=== PATIENT | male | born 1950 | race Caucasian/White ===

== ENCOUNTER 2018-09-14 11:11 | Inpatient (IN) | payer MEDICARE | END 2018-09-18 18:30 | disposition home or self-care (01) | LOC: EDH 11:11 → EDHIP 14:49 → 3CH 18:32 | DX: R94.5 Abnormal results of liver function studies (principal); K83.1 Obstruction of bile duct; K76.7 Hepatorenal syndrome; N17.9 Acute kidney failure, unspecified; E87.1 Hypo-osmolality and hyponatremia; R16.0 Hepatomegaly, not elsewhere classified; R10.9 Unspecified abdominal pain; K42.9 Umbilical hernia without obstruction or gangrene; D64.9 Anemia, unspecified; E11.65 Type 2 diabetes mellitus with hyperglycemia ==

== ENCOUNTER → 2018-09-25 | Outpatient (CLI) | payer MEDICARE ==
[~2018-09-25] MED LIST: AMIT25TA9 PO; ASCO10007 PO; ASPI-555 PO; CALC-1104 PO; CARV12.511 PO; CHOL100040 PO; CYAN-35 PO; EMPA10TA PO; EMPA1TAB5 PO; ERGO500014 PO; FERR160T11 PO; FOLI0.8T22 PO; FURO20TA4 PO; GABA-533 PO; INSU100I15 SQ; INSU300I SQ; IOHEXOL-350 75 ML VIAL IV ONE; ISOS60TA4 PO; LEVO500T2 PO; LISI10TA7 PO; MAGN250T10 PO; METH-370 PO; METO50TA18 PO; METR500T PO; MULT-1258 PO; OMEG-148 PO; PRAV40TA3 PO; ROPI1TAB11 PO; TRAM50TA4 PO; VITA400T9 PO; WARF4TAB72 PO; WARF6TAB49 PO
== END | disposition home or self-care (01) ==
LOC: RAH 09:41
PROVIDERS: ATTEND Internal Medicine
DX: N28.1 Cyst of kidney, acquired (principal); N20.0 Calculus of kidney; K43.9 Ventral hernia without obstruction or gangrene; I70.90 Unspecified atherosclerosis; K76.89 Other specified diseases of liver; M47.815 Spondylosis without myelopathy or radiculopathy, thoracolumbar region; J98.11 Atelectasis
CPT/HCPCS: 74170; Q9967

== ENCOUNTER 2018-09-27 14:38 | Inpatient (IN) | payer MEDICARE ==
[~2018-09-27] VITALS: Ht 185.4 cm; Wt 90.8 kg
[~2018-09-27 14:38] MED LIST changes: -AMIT25TA9 PO; -ASCO10007 PO; -CALC-1104 PO; -CHOL100040 PO; -CYAN-35 PO; -EMPA10TA PO; -FERR160T11 PO; -IOHEXOL-350 75 ML VIAL IV ONE; -ISOS60TA4 PO; -MAGN250T10 PO; -MULT-1258 PO; -OMEG-148 PO; -VITA400T9 PO; -WARF6TAB49 PO
[2018-09-27 14:54] LABS: EOSINOPHILS % (AUTO) 2.2 % (0.0-8.0); HEMATOCRIT 27.3 % (42-54); LYMPHOCYTES % (AUTO) 10.4 % (21.0-51.0); MEAN CORPUSCULAR HGB CONC 33.3 g/dL (32.0-36.0); MEAN CORPUSCULAR VOLUME 87.1 fL (79-99); MONOCYTES % (AUTO) 12.3 % (3.0-13.0); NEUTROPHILS % (AUTO) 74.1 % (40.0-77.0); PLATELET COUNT (AUTO) 216 K/uL (130-400); RED BLOOD CELL COUNT(AUTO) 3.14 MIL/uL (4.50-6.20); RED CELL DISTRIBUTION WIDTH 14.2 % (11.0-15.5); WHITE BLOOD COUNT (AUTO) 7.8 K/uL (4.8-10.8)
[2018-09-27 15:11] LABS: INR 2.2 (0.85-1.15); PARTIAL THROMBOPLASTIN TIME 60.6 SEC (26.3-35.5); PROTHROMBIN TIME 22.7 SEC (9.6-11.6)
[2018-09-27 15:13] LABS: ALBUMIN 2.4 g/dL (3.5-5.0); BILIRUBIN,TOTAL 1.2 mg/dL (0.2-1.0); CREATININE 4.6 mg/dL (0.5-1.5); POTASSIUM 3.9 mmol/L (3.5-5.1); TOTAL PROTEIN, SERUM 6.2 g/dL (6.0-8.3)
[2018-09-27] MEDS ORDERED: ISOSORBIDE MONO 30MG TAB SR PO SCH (15:15)
[2018-09-27] MEDS: CLOPIDOGREL BISULFATE 300 MG TAB PO SCH (15:15)
[2018-09-27] MEDS ORDERED: SODIUM CHLORIDE 0.9% 1000ML 1,000 ML IV ONE (15:51)
[2018-09-27] MEDS ORDERED: CLOPIDOGREL BISULFATE 300 MG TAB ONE (16:41)
[2018-09-27] MEDS ORDERED: SODIUM CHLORIDE 0.9% 10 ML VIAL IVP SCH (16:45)
[2018-09-27 18:25] VITALS: BP 123/63
[2018-09-27 19:00] VITALS: BP 73/38
[2018-09-27 19:16] VITALS: BP 88/44
[2018-09-27 19:31] VITALS: BP 90/54
[2018-09-27 19:45] VITALS: BP 87/58
[2018-09-27 20:27] LABS: CREATINE KINASE, TOTAL 70 U/L (21-232); MYOGLOBIN 138 ng/mL (10-92); TROPONIN I < 0.04 ng/mL (0.00-0.06)
[2018-09-27] MEDS ORDERED: INSU300I SQ (20:37)
[2018-09-27] MEDS ORDERED: AMIT25TA9 PO (20:37)
[2018-09-27] MEDS ORDERED: CALC-1104 PO (20:37)
[2018-09-27] MEDS ORDERED: MULT-1258 PO (20:37)
[2018-09-27] MEDS ORDERED: ISOS60TA4 PO (20:37)
[2018-09-27] MEDS ORDERED: OMEG-148 PO (20:37)
[2018-09-27] MEDS ORDERED: CHOL100040 PO (20:37)
[2018-09-27] MEDS ORDERED: FERR160T11 PO (20:37)
[2018-09-27] MEDS ORDERED: EMPA10TA PO (20:37)
[2018-09-27] MEDS ORDERED: CYAN-35 PO (20:37)
[2018-09-27] MEDS ORDERED: VITA400T9 PO (20:37)
[2018-09-27] MEDS ORDERED: WARF4TAB72 PO (20:37)
[2018-09-27] MEDS ORDERED: WARF6TAB49 PO (20:37)
[2018-09-27] MEDS ORDERED: ASCO10007 PO (20:37)
[2018-09-27] MEDS ORDERED: MAGN250T10 PO (20:37)
[2018-09-27] MEDS ORDERED: CARVEDILOL 3.125 MG TABLET PO SCH (21:00)
[2018-09-27] MEDS: INSULIN HUMULIN R 100 UNIT/ML 3ML SQ SCH (21:15)
[2018-09-27] MEDS: FAMOTIDINE 20MG TAB 20 MG TAB PO SCH (21:20)
[2018-09-27] MEDS ORDERED: METHIMAZOLE 10 MG TAB PO SCH (22:45)
[2018-09-27 23:00] VITALS: BP 99/70
[2018-09-27 23:22] LABS: CREATINE KINASE, TOTAL 67 U/L (21-232); MYOGLOBIN 129 ng/mL (10-92); TROPONIN I < 0.04 ng/mL (0.00-0.06)
[2018-09-28 03:22] VITALS: BP 122/76
[2018-09-28] MEDS ORDERED: SODIUM CHLORIDE 0.9% 1000ML 1,000 ML IV ONE (03:36)
[2018-09-28] MEDS: INSULIN HUMULIN R 100 UNIT/ML 3ML SQ SCH ×4 (06:33→20:52)
[2018-09-28 06:57] LABS: HEMATOCRIT 27.3 % (42-54); MEAN CORPUSCULAR HGB CONC 33.3 g/dL (32.0-36.0); MEAN CORPUSCULAR VOLUME 87.1 fL (79-99); PLATELET COUNT (AUTO) 209 K/uL (130-400); RED BLOOD CELL COUNT(AUTO) 3.13 MIL/uL (4.50-6.20); RED CELL DISTRIBUTION WIDTH 14.2 % (11.0-15.5); WHITE BLOOD COUNT (AUTO) 5.9 K/uL (4.8-10.8)
[2018-09-28 07:18] LABS: CARBON DIOXIDE 13 mmol/L (21-32); CHLORIDE 105 mmol/L (101-111); CREATINE KINASE, TOTAL 58 U/L (21-232); CREATININE 4.7 mg/dL (0.5-1.5); GLOMERULAR FILTR. RATE CALC 13 mL/min (>60); GLUCOSE,RANDOM 137 mg/dL (70-105); MYOGLOBIN 111 ng/mL (10-92); POTASSIUM 4.2 mmol/L (3.5-5.1); SODIUM SERUM 134 mmol/L (136-145); TROPONIN I < 0.04 ng/mL (0.00-0.06)
[2018-09-28 07:20] LABS: UREA NITROGEN, BLOOD 84 mg/dL (7-18)
--- NOTE | 2018-09-28 07:20 | NUR ---
DR MATOS AT BEDSIDE . PLAN PANCREATIC BX PREVIOUSLY SCHEDULED. OBTAIN CARDIAC CLEARANCE.
[2018-09-28 07:23] VITALS: BP 116/83
[2018-09-28 07:23] LABS: INR 2.16 (0.85-1.15); PROTHROMBIN TIME 22.3 SEC (9.6-11.6)
--- NOTE | 2018-09-28 07:30 | NUR ---
Patient is resting in bed. Denies pain and SOB. Vitals as recorded. Bed Locked and Low, Call light in reach, Patient is able to demonstrate correct use of call light. Patient is unsure of year and current president, looks to to answer questions. Pending head CT today. Monitors on and alarms audible. Will continue to monitor.
--- NOTE | 2018-09-28 08:20 | NUR ---
Dr Jovani Evans in to see patient. New orders on chart. States patient has cardiac clearance for Biopsy when GI is ready. Long discussion of patient's condition and plan had between Dr Jovani Evans, Patient and spouse at bedside. Dr Jovani Evans answered all questions.
[2018-09-28] MEDS ORDERED: AMIODARONE HCL 150 MG in DEXTROSE 5%-WATER 100 ML IV SCH (08:30)
[2018-09-28] MEDS ORDERED: AMIODARONE HCL 900 MG in DEXTROSE 5%-WATER 500 ML IV SCH (08:30)
[2018-09-28] MEDS: ENOXAPARIN SODIUM 30 MG/0.3 ML SQ SCH (09:00)
[2018-09-28] MEDS ORDERED: METOPROLOL TARTRATE 50 MG TAB PO SCH (09:00)
[2018-09-28] MEDS ORDERED: WARFARIN SODIUM 4 MG PO SCH (09:00)
[2018-09-28] MEDS ORDERED: CLOPIDOGREL BISULFATE 75 MG TAB PO SCH (09:00)
[2018-09-28] MEDS ORDERED: FUROSEMIDE 20 MG TABLET PO SCH (09:00)
[2018-09-28] MEDS ORDERED: LISINOPRIL 10 MG TABLET PO SCH (09:00)
[2018-09-28] MEDS ORDERED: ISOSORBIDE MONO 30MG TAB SR PO SCH (09:00)
[2018-09-28] MEDS ORDERED: NON-FORMULARY MEDICATION 1 EACH (Aspirin (Aspir 81) 81 MG) PO SCH (09:00)
[2018-09-28] MEDS ORDERED: MAGNESIUM OXIDE 250 MG PO SCH (09:00)
[2018-09-28] MEDS ORDERED: CYANOCOBALAMIN (VITAMIN B-12) 1,000 MCG TABLET PO SCH (09:00)
[2018-09-28] MEDS: ***HM***Cholecalciferol (Vitamin D3) 1,000 UNIT PO SCH (09:00)
[2018-09-28] MEDS ORDERED: NON-FORMULARY MEDICATION 1 EACH (Warfarin Sodium 6 MG) PO SCH (09:00)
--- NOTE | 2018-09-28 09:15 | NUR ---
Dr English in to see patient, no new orders.
[2018-09-28] MEDS: SODIUM CHLORIDE 0.9% 1000ML 1,000 ML IV SCH ×2 (09:29→20:59)
[2018-09-28] MEDS: GABAPENTIN 100 MG CAPSULE PO SCH ×3 (09:30→20:50)
[2018-09-28] MEDS: ASCORBIC ACID 500 MG TAB PO SCH (09:30)
[2018-09-28] MEDS: METHIMAZOLE 10 MG TAB PO SCH (09:30)
[2018-09-28] MEDS: ASPIRIN 81MG TAB.CHEW PO SCH (09:31)
[2018-09-28] MEDS: ROPINIROLE HCL 1 MG TABLET PO SCH (09:31)
[2018-09-28] MEDS: CARVEDILOL 12.5 MG TABLET PO SCH ×2 (09:31→20:51)
[2018-09-28] MEDS: CALCIUM 600 + VITAMIN D 400 TABLET PO SCH (09:31)
[2018-09-28] MEDS: FERROUS SULFATE 300 MG/5 ML LIQ UDCUP PO SCH (09:31)
[2018-09-28] MEDS: MULTIVITAMIN WITH MINERALS TABLET PO SCH (09:31)
[2018-09-28] MEDS: FAMOTIDINE 20MG TAB 20 MG TAB PO SCH ×2 (09:31→20:52)
[2018-09-28] MEDS: ISOSORBIDE MONO 60 MG TAB.SR PO SCH (09:32)
--- NOTE | 2018-09-28 10:00 | NUR ---
As Per Dr Estrada, no Oncology consult at this time due to no diagnosis. Patient taken to CT scan with transport. remains in room.
--- NOTE | 2018-09-28 10:10 | NUR ---
Patient returned to room, tolerated well. Monitors on and alarms audible.
[2018-09-28 11:06] VITALS: BP 121/59
--- NOTE | 2018-09-28 12:00 | NUR ---
Dr Noble returned call. Update given on patient condition and Cardiac clearance given by Dr Jovani Evans. Plan discussed: Ok to give 30mg SQ Lovenox now, Hold tomorrow's dose, INR at 3am, If Greater than 1.5 transfuse 2units FFP, then recheck INR, Keep 4 units FFP on hold, NPO after midnight. As per Dr Noble She will input these orders herself.
--- NOTE | 2018-09-28 12:06 | NUR ---
DYSPHAGIA EVAL COMPLETE. -S/S OF ASPIRATION. RECOMMEND REGULAR, THIN LIQUID DIET; PILLS WHOLE WITH LIQUIDS. PATIENT INFORMATION: Pt IS A 68 Y.O. MALE REFERRED FOR A BEDSIDE DYSPHAGIA EVALUATION SECONDARY TO POOR APPETITE. Pt AAOX3 WITH AT BEDSIDE. Pt AND REPORT Pt HAS BEEN WITH LOW P.O. FOR 2 WEEKS. Pt CURRENTLY ADMITTED SECONDARY TO GENERALIZED BODY WEAKNESS. Pt HAS A PAST MEDICAL HISTORY SIGNIFICANT FOR LIVER MASS WITH BILIARY DRAIN AND LIVER DISEASE, NON-INSULIN DEPENDENT DM, HYPERTENSION, HYPERLIPIDEMIA, LIVER BIOPSY, DYSLIPIDEMIA. FINDINGS THIS ADMISSION: LARGE PANCREATIC MASS. EVALUATION: SWALLOW FUNCTION AND EFFICIENCY WITHIN FUNCTIONAL LIMITS. ORAL MOTOR STRENGTH, COORDINATION, AND ROM WITHIN FUNCTIONAL LIMITS. LARYNGEAL ELEVATION/EXCURSION STRONG WITH TIMELY PHARYNGEAL RESPONSE. NO OVERT SIGNS OR SYMPTOMS OF ASPIRATION PRESENT AT BEDSIDE. VOCAL QUALITY CLEAR WITH NO THROAT CLEAR OR COUGH RESPONSE PRESENT. RECOMMENDATIONS: 1. REGULAR TEXTURE, THIN LIQUID DIET; PILLS WHOLE WITH LIQUIDS. 2. COMPENSATORY STRATEGIES (PROPHYLAXIS): *SEATED AT 90 DEGREE ANGLE *NO STRAWS 3. DIETARY CONSULT SECONDARY TO POOR P.O. G-CODES SWALLOWING: [id number] [id number] Addendum: 09/28/18 at 1216 by BRIAN HOLLAND Amended: Links added.
--- NOTE | 2018-09-28 13:56 | NUR ---
RD Trigger Notification Patient with current Heart Healthy diet with poor PO at 25%. Patient with some nausea. RD offered nutritional supplement abbeymacrina, Patient family agrees. Patient LBM 09/27/18. Patient monitored labs: na 134, CO2 13, BUN 84, Cr 4.7, GFR 13, Glu 130, Alb 2.4. Patient with altered renal labs; rec to modify diet to renal non-dialysis. RD to continue to monitor nutritional labs and PO intake. Please notify RD as nutrition concern arise. Thank you. Addendum: 09/28/18 at [address] Amended: Links added.
[2018-09-28] MEDS: CLOPIDOGREL BISULFATE 300 MG TAB PO SCH (14:43)
[2018-09-28 16:00] VITALS: BP 103/66
[2018-09-28 18:11] LABS: APPEARANCE,URINE Clear (CLEAR); BILIRUBIN,URINE Negative (NEGATIVE); COLOR,URINE Yellow (YELLOW); GLUCOSE, URINE (UA) 250 mg/dL (NEGATIVE); KETONES,URINE Negative (NEGATIVE); LEUKOCYTE ESTERASE ,URINE Negative (NEGATIVE); NITRATE,URINE Negative (NEGATIVE); OCCULT BLOOD,URINE Negative (NEGATIVE); PROTEIN,URINE POS 1+ (NEGATIVE); UROBILINOGEN,URINE 0.2 mg/dL (0.2-1.0)
[2018-09-28 18:12] LABS: SODIUM,URINE RANDOM 52 mmol/l (40-220)
[2018-09-28 18:38] LABS: BACTERIA,URINE Few /HPF (None Seen); RBC,URINE 0-1 /HPF (0-1); SQUAMOUS EPITHELIAL CELL,UR Rare /HPF (0-2)
[2018-09-28 19:00] VITALS: BP 101/57
[2018-09-28] MEDS: AMITRIPTYLINE HCL 25 MG TABLET PO SCH (20:51)
[2018-09-28] MEDS: ***HM***Pravastatin Sodium 40 MG PO SCH (20:52)
[2018-09-28] MEDS: TRAMADOL HCL 50 MG TABLET PO PRN ×2 (21:39→23:57)
[2018-09-28] MEDS: PHYTONADIONE 10 MG/1 ML AMP SQ SCH (23:45)
[2018-09-29] VITALS (14 sets, daily range): BP systolic 93–150; BP diastolic 59–76
[2018-09-29] MEDS ORDERED: PHYTONADIONE 10 MG/1 ML AMP ONE
[2018-09-29 03:50] LABS: BASOPHILS % (AUTO) 1.2 % (0.0-5.0); EOSINOPHILS % (AUTO) 4.9 % (0.0-8.0); LYMPHOCYTES % (AUTO) 14.6 % (21.0-51.0); MEAN CORPUSCULAR HEMOGLOBIN 28.7 pg (27.0-33.0); MONOCYTES % (AUTO) 10.1 % (3.0-13.0); NEUTROPHILS % (AUTO) 69.2 % (40.0-77.0); NUCLEATED RED BLOOD CELLS 0.1 % (0.0-0.19); PLATELET COUNT (AUTO) 233 K/uL (130-400); RED BLOOD CELL COUNT(AUTO) 2.88 MIL/uL (4.50-6.20); RED CELL DISTRIBUTION WIDTH 14.3 % (11.0-15.5); WHITE BLOOD COUNT (AUTO) 5.8 K/uL (4.8-10.8)
[2018-09-29 03:57] LABS: INR 2.14 (0.85-1.15); PROTHROMBIN TIME 22.1 SEC (9.6-11.6)
[2018-09-29 04:01] LABS: CREATININE 4.4 mg/dL (0.5-1.5); POTASSIUM 4.2 mmol/L (3.5-5.1)
[2018-09-29] MEDS: INSULIN HUMULIN R 100 UNIT/ML 3ML SQ SCH ×4 (06:03→21:00)
[2018-09-29] MEDS: METHIMAZOLE 10 MG TAB PO SCH (09:00)
[2018-09-29] MEDS: GABAPENTIN 100 MG CAPSULE PO SCH ×3 (09:00→20:24)
[2018-09-29] MEDS: CARVEDILOL 12.5 MG TABLET PO SCH ×2 (09:00→20:25)
[2018-09-29] MEDS: CALCIUM 600 + VITAMIN D 400 TABLET PO SCH (09:00)
[2018-09-29] MEDS: ENOXAPARIN SODIUM 30 MG/0.3 ML SQ SCH (09:00)
[2018-09-29] MEDS: FOLIC ACID/VITAMIN B COMP W-C 1 MG CAPSULE PO SCH (09:00)
[2018-09-29] MEDS: ***HM***Cholecalciferol (Vitamin D3) 1,000 UNIT PO SCH (09:00)
[2018-09-29] MEDS: FAMOTIDINE 20MG TAB 20 MG TAB PO SCH ×2 (09:00→20:25)
[2018-09-29] MEDS: ASCORBIC ACID 500 MG TAB PO SCH (09:00)
[2018-09-29] MEDS: ASPIRIN 81MG TAB.CHEW PO SCH (09:00)
[2018-09-29] MEDS: ROPINIROLE HCL 1 MG TABLET PO SCH (09:00)
[2018-09-29] MEDS: MULTIVITAMIN WITH MINERALS TABLET PO SCH (09:00)
[2018-09-29] MEDS: FERROUS SULFATE 300 MG/5 ML LIQ UDCUP PO SCH (09:00)
[2018-09-29] MEDS: ISOSORBIDE MONO 60 MG TAB.SR PO SCH (09:00)
[2018-09-29] MEDS: THIAMINE HCL 100 MG/ML 2ML VIAL IVP SCH (10:05)
--- NOTE | 2018-09-29 10:07 | NUR ---
DC Plan Went into room to discuss dcp. Patient lying in bed with eyes closed. Normal RR. No distress noted. expressed patient has had major decline in last few days. States sleeps a lot and has no energy. verbalized no prior knowledge of CA diagnosed. Denies any HH or provider services. States patient ambulates w/ cane or walker. States lives upstairs and has stairs to climb. Discussed dc options. states too soon. CM to revisit once patient has a definitive diagnosis. CD Addendum: 09/29/18 at 1010 by ALFREDO BUSTAMANTE CM Amended: Links added.
[2018-09-29 10:44] LABS: INR 1.35 (0.85-1.15); PROTHROMBIN TIME 14.1 SEC (9.6-11.6)
[2018-09-29] MEDS: SODIUM BICARB 8.4% 50ML SYRING 75 MEQ in 1/2 NORMAL SALINE 1,000 ML IV SCH (13:48)
[2018-09-29] MEDS: ***HM***Pravastatin Sodium 40 MG PO SCH (20:07)
[2018-09-29] MEDS: AMITRIPTYLINE HCL 25 MG TABLET PO SCH (20:25)
[2018-09-29] MEDS: SODIUM BICARBONATE 650 MG TAB PO SCH (20:25)
[2018-09-29] MEDS ORDERED: METOPROLOL TARTRATE 50 MG TAB PO SCH (21:00)
[2018-09-29] MEDS: TRAMADOL HCL 50 MG TABLET PO PRN (22:02)
[2018-09-29] MEDS: PHYTONADIONE 10 MG/1 ML AMP SQ SCH (22:48)
[2018-09-30 03:53] VITALS: BP 144/77
[2018-09-30 03:54] LABS: BASOPHILS % (AUTO) 0.9 % (0.0-5.0); EOSINOPHILS % (AUTO) 4.8 % (0.0-8.0); HEMATOCRIT 27.2 % (42-54); LYMPHOCYTES % (AUTO) 12.5 % (21.0-51.0); MEAN CORPUSCULAR HEMOGLOBIN 28.6 pg (27.0-33.0); MEAN CORPUSCULAR HGB CONC 33.1 g/dL (32.0-36.0); MEAN CORPUSCULAR VOLUME 86.3 fL (79-99); MONOCYTES % (AUTO) 11.1 % (3.0-13.0); NEUTROPHILS % (AUTO) 70.7 % (40.0-77.0); PLATELET COUNT (AUTO) 246 K/uL (130-400); RED BLOOD CELL COUNT(AUTO) 3.15 MIL/uL (4.50-6.20); RED CELL DISTRIBUTION WIDTH 14.5 % (11.0-15.5); WHITE BLOOD COUNT (AUTO) 6.1 K/uL (4.8-10.8)
[2018-09-30 04:06] LABS: CREATININE 3.8 mg/dL (0.5-1.5); MAGNESIUM 2.3 mg/dL (1.80-2.40); PHOSPHORUS 5.2 mg/dL (2.5-4.9); POTASSIUM 3.9 mmol/L (3.5-5.1)
[2018-09-30 06:42] LABS: INR 1.14 (0.85-1.15); PROTHROMBIN TIME 11.9 SEC (9.6-11.6)
[2018-09-30] MEDS: SODIUM BICARB 8.4% 50ML SYRING 75 MEQ in 1/2 NORMAL SALINE 1,000 ML IV SCH ×4 (06:42→20:46)
[2018-09-30 07:17] VITALS: BP 132/77
[2018-09-30] MEDS: INSULIN HUMULIN R 100 UNIT/ML 3ML SQ SCH ×4 (07:30→20:55)
[2018-09-30] MEDS: FERROUS SULFATE 300 MG/5 ML LIQ UDCUP PO SCH (08:07)
[2018-09-30] MEDS: ASPIRIN 81MG TAB.CHEW PO SCH (08:07)
[2018-09-30] MEDS: ENOXAPARIN SODIUM 30 MG/0.3 ML SQ SCH (08:07)
[2018-09-30] MEDS: CARVEDILOL 12.5 MG TABLET PO SCH ×2 (08:09→20:13)
[2018-09-30] MEDS: ISOSORBIDE MONO 30MG TAB SR PO SCH (08:09)
[2018-09-30] MEDS: FOLIC ACID/VITAMIN B COMP W-C 1 MG CAPSULE PO SCH (08:09)
[2018-09-30] MEDS: CALCIUM 600 + VITAMIN D 400 TABLET PO SCH (08:10)
[2018-09-30] MEDS: FAMOTIDINE 20MG TAB 20 MG TAB PO SCH ×2 (08:10→20:14)
[2018-09-30] MEDS: MULTIVITAMIN WITH MINERALS TABLET PO SCH (08:10)
[2018-09-30] MEDS: TRAMADOL HCL 50 MG TABLET PO PRN (08:10)
[2018-09-30] MEDS: AMIODARONE HCL 200 MG TABLET PO SCH (08:10)
[2018-09-30] MEDS: ROPINIROLE HCL 1 MG TABLET PO SCH (08:11)
[2018-09-30] MEDS: ASCORBIC ACID 500 MG TAB PO SCH (08:11)
[2018-09-30] MEDS: SODIUM BICARBONATE 650 MG TAB PO SCH ×2 (08:11→20:15)
[2018-09-30] MEDS: ***HM***Cholecalciferol (Vitamin D3) 1,000 UNIT PO SCH (08:28)
[2018-09-30] MEDS: THIAMINE HCL 100 MG/ML 2ML VIAL IVP SCH (09:00)
[2018-09-30] MEDS: GABAPENTIN 100 MG CAPSULE PO SCH ×3 (09:02→20:14)
[2018-09-30] MEDS: METHIMAZOLE 10 MG TAB PO SCH (09:03)
[2018-09-30 11:11] VITALS: BP 108/58
--- NOTE | 2018-09-30 12:00 | NUR ---
MD ROUNDS DR. JIMENEZ IN TO SEE PATIENT.
--- NOTE | 2018-09-30 13:39 | NUR ---
ROUNDS DR. FRANKLIN CASAREZ IN TO SEE PT.
--- NOTE | 2018-09-30 16:00 | NUR ---
MD ROGER DENIS IN TO SEE PT. Addendum: 09/30/18 at 1930 by GIOVANI CASAREZ RN RN INFORMED DR. DENIS GABAPENTIN WAS NOT ADMINISTERED AT 1400 D/T EXCESSIVE DROWSINESS. NEW ORDERS RECEIVED TO BE CARRIED OUT.
[2018-09-30 16:07] VITALS: BP 110/59
--- NOTE | 2018-09-30 17:00 | NUR ---
PT ASSISTED TO BEDSIDE COMMODE. PT IS VERY UNSTEADY AND CONT TO BE HIGH RISK FOR FALLS. PT TO HAVE PHYSICAL THERAPY PER DR. CASAREZ.
[2018-09-30 18:59] VITALS: BP 126/67
[2018-09-30] MEDS: ***HM***Pravastatin Sodium 40 MG PO SCH (20:13)
[2018-09-30] MEDS: AMITRIPTYLINE HCL 25 MG TABLET PO SCH (20:16)
[2018-09-30] MEDS: PHYTONADIONE 10 MG/1 ML AMP SQ SCH (20:18)
[2018-09-30] MEDS: POLYETHYLENE GLYCOL 3350 17 GM POWD.PACK PO SCH (20:18)
[2018-09-30] MEDS: MORPHINE SULFATE 2 MG/ML 1ML SYG IVP PRN (21:01)
[2018-09-30 22:55] VITALS: BP 146/79
[2018-10-01 03:15] VITALS: BP 137/60
[2018-10-01 03:36] LABS: HEMATOCRIT 26.5 % (42-54); MEAN CORPUSCULAR HEMOGLOBIN 28.6 pg (27.0-33.0); MEAN CORPUSCULAR HGB CONC 33.5 g/dL (32.0-36.0); MEAN CORPUSCULAR VOLUME 85.4 fL (79-99); NUCLEATED RED BLOOD CELLS 0.1 % (0.0-0.19); PLATELET COUNT (AUTO) 253 K/uL (130-400); RED CELL DISTRIBUTION WIDTH 14.2 % (11.0-15.5); WHITE BLOOD COUNT (AUTO) 6.4 K/uL (4.8-10.8)
[2018-10-01 03:47] LABS: INR 1.08 (0.85-1.15); PROTHROMBIN TIME 11.3 SEC (9.6-11.6)
[2018-10-01 03:50] LABS: CREATININE 2.9 mg/dL (0.5-1.5); POTASSIUM 3.8 mmol/L (3.5-5.1)
[2018-10-01] MEDS: MORPHINE SULFATE 2 MG/ML 1ML SYG IVP PRN ×3 (04:40→14:28)
[2018-10-01] MEDS: INSULIN HUMULIN R 100 UNIT/ML 3ML SQ SCH ×4 (06:24→20:58)
[2018-10-01 07:32] VITALS: BP 179/73
[2018-10-01] MEDS: ASPIRIN 81MG TAB.CHEW PO SCH (08:37)
[2018-10-01] MEDS: CALCIUM 600 + VITAMIN D 400 TABLET PO SCH (08:39)
[2018-10-01] MEDS: CARVEDILOL 12.5 MG TABLET PO SCH ×2 (08:39→20:58)
[2018-10-01] MEDS: FERROUS SULFATE 300 MG/5 ML LIQ UDCUP PO SCH (08:40)
[2018-10-01] MEDS: POLYETHYLENE GLYCOL 3350 17 GM POWD.PACK PO SCH ×2 (08:40→20:58)
[2018-10-01] MEDS: ISOSORBIDE MONO 30MG TAB SR PO SCH (08:40)
[2018-10-01] MEDS: AMIODARONE HCL 200 MG TABLET PO SCH (08:41)
[2018-10-01] MEDS: FAMOTIDINE 20MG TAB 20 MG TAB PO SCH ×2 (08:41→20:56)
[2018-10-01] MEDS: GABAPENTIN 100 MG CAPSULE PO SCH ×3 (08:41→20:48)
[2018-10-01] MEDS: METHIMAZOLE 10 MG TAB PO SCH (08:42)
[2018-10-01] MEDS: ASCORBIC ACID 500 MG TAB PO SCH (08:43)
[2018-10-01] MEDS: ENOXAPARIN SODIUM 30 MG/0.3 ML SQ SCH (08:44)
[2018-10-01] MEDS: FOLIC ACID/VITAMIN B COMP W-C 1 MG CAPSULE PO SCH (08:48)
[2018-10-01] MEDS: MULTIVITAMIN WITH MINERALS TABLET PO SCH (08:49)
[2018-10-01] MEDS: ROPINIROLE HCL 1 MG TABLET PO SCH (08:51)
[2018-10-01] MEDS: SODIUM BICARBONATE 650 MG TAB PO SCH ×2 (08:52→20:56)
[2018-10-01] MEDS: ***HM***Cholecalciferol (Vitamin D3) 1,000 UNIT PO SCH (09:00)
[2018-10-01] MEDS: THIAMINE HCL 100 MG/ML 2ML VIAL IVP SCH (10:38)
[2018-10-01 11:27] VITALS: BP 131/64
[2018-10-01] MEDS: SODIUM BICARB 8.4% 50ML SYRING 75 MEQ in 1/2 NORMAL SALINE 1,000 ML IV SCH (11:49)
[2018-10-01] MEDS ORDERED: LORAZEPAM 2 MG/ML 1 ML VIAL IVP SCH (14:45)
--- NOTE | 2018-10-01 16:03 | NUR ---
DC PLAN VISITED WITH PATIENT. PATIENT DOWN FOR MRI. PATIENT WEAKER WILL NEED PHYSICAL THERAPY. GAVE LIST OF SNF IN [place] AND [place]. FAMILY HAD A LOT OF QUESTIONS. ANSWERED THE BEST I COULD. STILL NO DX BIOPSY HAS BEEN UNSUCCESSFUL. Addendum: 10/01/18 at 1605 by ANTHONY TAYLOR RN CM Amended: Links added.
--- NOTE | 2018-10-01 16:08 | NUR ---
Nutrition intervention: Pt with diet downgrade to clear liquid diet with poor po intake. As per pt's nurse, pt not tolerating diet therapy and not very hungry. As per EMR notes, pt with noted PEG tube, not being used. If medically feasible, recommend using PEG tube for nutrition. LBM noted 09/28, Pt's nurse reports no BM today. Recommend stool softener, if medically feasible. Addendum: 10/01/18 at [address] Amended: Links added.
[2018-10-01 16:28] LABS: THYROID STIMULATING HORMONE 0.3 uIU/mL (0.36-3.74)
[2018-10-01 16:29] VITALS: BP 129/71
[2018-10-01 19:09] VITALS: BP 115/64
--- NOTE | 2018-10-01 19:15 | NUR ---
ASSESSMENT: PATIENT RESTING COMFORTABLY IN BED , AWAKE , ALERT ORIENTED X 1 , FOLLOWS COMMANDS , WEAK X 4, EFIQ2ND EQUAL , EQUAL HAND GRASPS, LUNGS CLEAR ON ROOM AIR, ABDOMEN SOFT, BILIARY DRAIN TO R FLANK,PEDAL PULSES PALPABLE, ASSESSMENT COMPLETED. CALL TOSCANO IN REACH.
[2018-10-01] MEDS: ***HM***Pravastatin Sodium 40 MG PO SCH (20:48)
[2018-10-01] MEDS: AMITRIPTYLINE HCL 25 MG TABLET PO SCH (20:48)
[2018-10-01] MEDS: PHYTONADIONE 10 MG/1 ML AMP SQ SCH (22:36)
[2018-10-01 23:20] VITALS: BP 150/85
[2018-10-02] VITALS (14 sets, daily range): BP systolic 92–173; BP diastolic 47–85
[2018-10-02 03:30] LABS: BASOPHILS % (AUTO) 1.2 % (0.0-5.0); EOSINOPHILS % (AUTO) 3.6 % (0.0-8.0); HEMATOCRIT 29.2 % (42-54); LYMPHOCYTES % (AUTO) 10.3 % (21.0-51.0); MEAN CORPUSCULAR HEMOGLOBIN 28.2 pg (27.0-33.0); MEAN CORPUSCULAR HGB CONC 33.1 g/dL (32.0-36.0); MONOCYTES % (AUTO) 10.2 % (3.0-13.0); NEUTROPHILS % (AUTO) 74.7 % (40.0-77.0); PLATELET COUNT (AUTO) 255 K/uL (130-400); RED BLOOD CELL COUNT(AUTO) 3.43 MIL/uL (4.50-6.20); WHITE BLOOD COUNT (AUTO) 7.1 K/uL (4.8-10.8)
[2018-10-02 03:40] LABS: INR 1.05 (0.85-1.15); PARTIAL THROMBOPLASTIN TIME 34.5 SEC (26.3-35.5)
[2018-10-02 03:43] LABS: ALBUMIN 2.4 g/dL (3.5-5.0); BILIRUBIN,DIRECT 0.8 mg/dL (0.0-0.3); BILIRUBIN,TOTAL 1.2 mg/dL (0.2-1.0); CREATININE 2.4 mg/dL (0.5-1.5); POTASSIUM 3.7 mmol/L (3.5-5.1); TOTAL PROTEIN, SERUM 6.5 g/dL (6.0-8.3)
[2018-10-02] MEDS: INSULIN HUMULIN R 100 UNIT/ML 3ML SQ SCH ×4 (05:51→22:15)
[2018-10-02] MEDS: SODIUM BICARB 8.4% 50ML SYRING 75 MEQ in 1/2 NORMAL SALINE 1,000 ML IV SCH (06:51)
[2018-10-02] MEDS ORDERED: ONDANSETRON HCL 4 MG/2 ML VIAL ONE (08:28)
[2018-10-02] MEDS: CARVEDILOL 6.25 MG TABLET PO SCH ×2 (08:35→22:13)
[2018-10-02] MEDS: AMIODARONE HCL 200 MG TABLET PO SCH (08:35)
[2018-10-02] MEDS ORDERED: ACETAMINOPHEN 325 MG TAB ONE (08:37)
[2018-10-02] MEDS: ***HM***Cholecalciferol (Vitamin D3) 1,000 UNIT PO SCH (09:00)
[2018-10-02] MEDS: FOLIC ACID/VITAMIN B COMP W-C 1 MG CAPSULE PO SCH (09:00)
[2018-10-02] MEDS: FERROUS SULFATE 300 MG/5 ML LIQ UDCUP PO SCH (09:00)
[2018-10-02] MEDS: FAMOTIDINE 20MG TAB 20 MG TAB PO SCH ×2 (09:00→22:13)
[2018-10-02] MEDS: ROPINIROLE HCL 1 MG TABLET PO SCH (09:00)
[2018-10-02] MEDS: THIAMINE HCL 100 MG/ML 2ML VIAL IVP SCH (09:00)
[2018-10-02] MEDS: ASPIRIN 81MG TAB.CHEW PO SCH (09:00)
[2018-10-02] MEDS: ASCORBIC ACID 500 MG TAB PO SCH (09:00)
[2018-10-02] MEDS: MULTIVITAMIN WITH MINERALS TABLET PO SCH (09:00)
[2018-10-02] MEDS: POLYETHYLENE GLYCOL 3350 17 GM POWD.PACK PO SCH ×2 (09:00→22:12)
[2018-10-02] MEDS: CALCIUM 600 + VITAMIN D 400 TABLET PO SCH (09:00)
[2018-10-02] MEDS: SODIUM BICARBONATE 650 MG TAB PO SCH ×2 (09:00→22:13)
[2018-10-02] MEDS: ENOXAPARIN SODIUM 30 MG/0.3 ML SQ SCH (09:00)
[2018-10-02] MEDS ORDERED: HALOPERIDOL LACTATE 5 MG/ML VIAL IM PRN (12:30)
[2018-10-02] MEDS ORDERED: DiphenhydrAMINE HCL 50 MG/ML VIAL IM PRN (12:30)
[2018-10-02] MEDS ORDERED: MIDAZOLAM HCL 1 MG/ML 2ML VIAL ONE (13:35)
[2018-10-02] MEDS ORDERED: FENTANYL CITRATE PF 50 MCG/1 ML 2ML VIAL ONE (13:35)
--- NOTE | 2018-10-02 14:41 | NUR ---
U/S GD LIVER BX PROCEDURE PERFORMED BY DR Keila SWEENEY, PUNCTURE SITE RUQ AND PATIENT TOLERATED PROCEDURE WELL. END OF PROCEDURE AT 1430. FLOSEAL INJECTED TO PUNCTURE SITE AND BIOPSY NEEDLE REMOVED. REPORT GIVEN TO Destiny ZHOU RN AND PATIENT TRANSPORTED TO [facility] VIA BED AT 1445.
[2018-10-02] MEDS: ISOSORBIDE MONO 30MG TAB SR PO SCH (17:16)
[2018-10-02] MEDS: METHIMAZOLE 10 MG TAB PO SCH (17:16)
--- NOTE | 2018-10-02 19:30 | NUR ---
ASSESSMENT PT RESTING COMFORTABLE IN BED. FAMILY AT BEDSIDE. IV FLUIDS INFUSING WITHOUT DIFFICULTY. CURRENTLY DENIES ANY PAIN. CALLBELL REVIEWED AND WITHIN REACH. WHITE BOARD UP-DATED. QUESTIONS ASKED AND ANSWERED, SEE FLOW SHEET.
[2018-10-02] MEDS: PHYTONADIONE 10 MG/1 ML AMP SQ SCH (22:16)
[2018-10-03] MEDS: SODIUM BICARB 8.4% 50ML SYRING 75 MEQ in 1/2 NORMAL SALINE 1,000 ML IV SCH ×2 (01:47→16:28)
[2018-10-03 03:42] LABS: HEMATOCRIT 27.9 % (42-54); MEAN CORPUSCULAR HGB CONC 34.2 g/dL (32.0-36.0); NUCLEATED RED BLOOD CELLS 0.1 % (0.0-0.19); PLATELET COUNT (AUTO) 260 K/uL (130-400); RED BLOOD CELL COUNT(AUTO) 3.29 MIL/uL (4.50-6.20); RED CELL DISTRIBUTION WIDTH 14.3 % (11.0-15.5); WHITE BLOOD COUNT (AUTO) 7.8 K/uL (4.8-10.8)
[2018-10-03 03:43] VITALS: BP 110/50
[2018-10-03 03:43] LABS: CREATININE 2.2 mg/dL (0.5-1.5); POTASSIUM 3.4 mmol/L (3.5-5.1)
[2018-10-03] MEDS: ASPIRIN 81MG TAB.CHEW PO SCH (05:57)
[2018-10-03] MEDS: INSULIN HUMULIN R 100 UNIT/ML 3ML SQ SCH ×4 (06:30→21:22)
[2018-10-03 07:43] VITALS: BP 134/67
--- NOTE | 2018-10-03 08:00 | NUR ---
REPORT REPORT GIVEN TO NATY BARR.
[2018-10-03] MEDS: METHIMAZOLE 10 MG TAB PO SCH (08:51)
[2018-10-03] MEDS: FERROUS SULFATE 300 MG/5 ML LIQ UDCUP PO SCH (08:51)
[2018-10-03] MEDS: POLYETHYLENE GLYCOL 3350 17 GM POWD.PACK PO SCH ×2 (08:51→21:10)
[2018-10-03] MEDS: ENOXAPARIN SODIUM 30 MG/0.3 ML SQ SCH (08:51)
[2018-10-03] MEDS: CALCIUM 600 + VITAMIN D 400 TABLET PO SCH (08:52)
[2018-10-03] MEDS: CARVEDILOL 6.25 MG TABLET PO SCH ×2 (08:52→21:13)
[2018-10-03] MEDS: SODIUM BICARBONATE 650 MG TAB PO SCH ×2 (08:52→21:11)
[2018-10-03] MEDS: FAMOTIDINE 20MG TAB 20 MG TAB PO SCH ×2 (08:52→21:11)
[2018-10-03] MEDS: ISOSORBIDE MONO 30MG TAB SR PO SCH (08:52)
[2018-10-03] MEDS: FOLIC ACID/VITAMIN B COMP W-C 1 MG CAPSULE PO SCH (08:52)
[2018-10-03] MEDS: ASCORBIC ACID 500 MG TAB PO SCH (08:52)
[2018-10-03] MEDS: MULTIVITAMIN WITH MINERALS TABLET PO SCH (08:53)
[2018-10-03] MEDS: AMIODARONE HCL 200 MG TABLET PO SCH (08:53)
[2018-10-03] MEDS: ***HM***Cholecalciferol (Vitamin D3) 1,000 UNIT PO SCH (08:53)
[2018-10-03] MEDS: ROPINIROLE HCL 1 MG TABLET PO SCH (08:53)
[2018-10-03] MEDS: THIAMINE HCL 100 MG/ML 2ML VIAL IVP SCH (08:54)
[2018-10-03] MEDS: MORPHINE SULFATE 2 MG/ML 1ML SYG IVP PRN (10:22)
--- NOTE | 2018-10-03 10:30 | NUR ---
C/O RIGHT ELBOW SWELLING Patient reports that his right elbow is swollen and painful. 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 Patient is medicated for pain. Paged Dr. Weiss. Awaiting MD's callback.
[2018-10-03 12:00] VITALS: BP 100/59
--- NOTE | 2018-10-03 12:24 | NUR ---
INFORMED PATIENT OF THE IMPORTANCE OF BEING OUT OF BED BUT HE IS ADAMANT THAT HE GETS BACK IN BED. ASSISTED SAFELY BACK TO BED WITH THE HELP OF LAVARO WALDROP.
--- NOTE | 2018-10-03 12:53 | NUR ---
DR. HUNT IS MAKING HIS ROUNDS. UPDATE GIVEN TO PATIENT AND FAMILY MEMBERS. BIOPSY RESULT NOT AVAILABLE AT THIS TIME.
--- NOTE | 2018-10-03 14:02 | NUR ---
DR. HARRIS IS IN TO SEE PATIENT. MD IS MADE AWARE OF RIGHT ELBOW SWELLING AND PAIN. MD DOES NOT THINK IT'S FROM MRSA BUT RATHER AN ARTHRITIC FLARE UP. MD PLANS TO ADVANCE DIET FOR SUPPER. IVF DECREASED TO 50ML/HR.
[2018-10-03 16:00] VITALS: BP 132/70
[2018-10-03] MEDS ORDERED: KETOROLAC TROMETHAMINE 30MG/ML ONE (16:00)
[2018-10-03] MEDS ORDERED: KETOROLAC TROMETHAMINE 30MG/ML IV PRN (16:00)
[2018-10-03 19:38] VITALS: BP 127/73
[2018-10-03] MEDS: PHYTONADIONE 10 MG/1 ML AMP SQ SCH (21:23)
[2018-10-03 23:50] VITALS: BP 128/66
[2018-10-04 03:40] LABS: HEMATOCRIT 26.8 % (42-54); MEAN CORPUSCULAR HEMOGLOBIN 28.5 pg (27.0-33.0); MEAN CORPUSCULAR HGB CONC 33.6 g/dL (32.0-36.0); PLATELET COUNT (AUTO) 239 K/uL (130-400); RED BLOOD CELL COUNT(AUTO) 3.16 MIL/uL (4.50-6.20); RED CELL DISTRIBUTION WIDTH 14.2 % (11.0-15.5); WHITE BLOOD COUNT (AUTO) 7.2 K/uL (4.8-10.8)
[2018-10-04 03:52] VITALS: BP 138/79
[2018-10-04 03:59] LABS: CREATININE 2.1 mg/dL (0.5-1.5); POTASSIUM 3.2 mmol/L (3.5-5.1)
[2018-10-04 04:06] LABS: BAND NEUTROPHILS % (MANUAL) 2 % (0-2); BASOPHILS % (MANUAL) 2 % (0-2); EOSINOPHILS % (MANUAL) 4 % (1-6); LYMPHOCYTES % (MANUAL) 12 % (22-44); MONOCYTES % (MANUAL) 5 % (2-9); SEGMENTED NEUTROPHILS % 75 % (40-70)
[2018-10-04 04:07] LABS: MAN.DIFF COMMENT-IMPRESSION MANUAL DIFFERENTIAL
[2018-10-04 04:08] LABS: PLATELET MORPHOLOGY COMMENT ADEQUATE
[2018-10-04] MEDS: INSULIN HUMULIN R 100 UNIT/ML 3ML SQ SCH ×4 (06:15→20:42)
[2018-10-04 07:29] VITALS: BP 134/75
--- NOTE | 2018-10-04 07:40 | NUR ---
ASSESSMENT ENCOUNTERED PT IN REYES'S POSITION, A&OX3, CALM COOPERATIVE AND DOES NOT APPEAR TO BE IN ANY DISTRESS NOR ANY NEURO DEFICITS PRESENT. PT C/O GENERALIZED BODY ACHES, BILIARY DRAIN TO RT FLANK WITH BROWN FLUID IN COLLECTION BAG. PT IS ABLE TO AMBULATE TO CHAIR, GAIT SLOW BUT STEADY WITH 1-2 PERSON ASSIST AND GAIT BELT. PT RESTING COMFORTABLY, CALL LIGHT WITHIN REACH, FAMILY AT BEDSIDE.
[2018-10-04] MEDS: ***HM***Cholecalciferol (Vitamin D3) 1,000 UNIT PO SCH (09:00)
[2018-10-04] MEDS: THIAMINE HCL 100 MG/ML 2ML VIAL IVP SCH (09:00)
[2018-10-04] MEDS: ROPINIROLE HCL 1 MG TABLET PO SCH (09:11)
[2018-10-04] MEDS: FOLIC ACID/VITAMIN B COMP W-C 1 MG CAPSULE PO SCH (09:11)
[2018-10-04] MEDS: ASPIRIN 81MG TAB.CHEW PO SCH (09:12)
[2018-10-04] MEDS: SODIUM BICARBONATE 650 MG TAB PO SCH ×2 (09:12→20:41)
[2018-10-04] MEDS: MULTIVITAMIN WITH MINERALS TABLET PO SCH (09:12)
[2018-10-04] MEDS: CALCIUM 600 + VITAMIN D 400 TABLET PO SCH (09:12)
[2018-10-04] MEDS: ISOSORBIDE MONO 30MG TAB SR PO SCH (09:12)
[2018-10-04] MEDS: AMIODARONE HCL 200 MG TABLET PO SCH (09:12)
[2018-10-04] MEDS: CARVEDILOL 6.25 MG TABLET PO SCH ×2 (09:12→20:41)
[2018-10-04] MEDS: POLYETHYLENE GLYCOL 3350 17 GM POWD.PACK PO SCH ×3 (09:12→20:46)
[2018-10-04] MEDS: ENOXAPARIN SODIUM 30 MG/0.3 ML SQ SCH (09:13)
[2018-10-04] MEDS: FAMOTIDINE 20MG TAB 20 MG TAB PO SCH ×2 (09:13→20:46)
[2018-10-04] MEDS: FERROUS SULFATE 300 MG/5 ML LIQ UDCUP PO SCH (09:13)
[2018-10-04] MEDS: ASCORBIC ACID 500 MG TAB PO SCH (09:13)
[2018-10-04 11:40] VITALS: BP 114/72
[2018-10-04] MEDS: SODIUM BICARB 8.4% 50ML SYRING 75 MEQ in 1/2 NORMAL SALINE 1,000 ML IV SCH (15:57)
[2018-10-04 16:29] VITALS: BP 119/69
[2018-10-04 20:05] VITALS: BP 139/62
[2018-10-04] MEDS: PHYTONADIONE 10 MG/1 ML AMP SQ SCH (22:36)
[2018-10-05] VITALS (7 sets, daily range): BP systolic 128–155; BP diastolic 56–74
[2018-10-05] MEDS: INSULIN HUMULIN R 100 UNIT/ML 3ML SQ SCH ×4 (06:53→21:38)
[2018-10-05] MEDS: ***HM***Cholecalciferol (Vitamin D3) 1,000 UNIT PO SCH (08:48)
[2018-10-05] MEDS: POLYETHYLENE GLYCOL 3350 17 GM POWD.PACK PO SCH ×2 (08:51→21:00)
[2018-10-05] MEDS: SODIUM BICARBONATE 650 MG TAB PO SCH ×2 (08:52→21:35)
[2018-10-05] MEDS: FAMOTIDINE 20MG TAB 20 MG TAB PO SCH ×2 (08:52→21:35)
[2018-10-05] MEDS: MULTIVITAMIN WITH MINERALS TABLET PO SCH (08:52)
[2018-10-05] MEDS: ASCORBIC ACID 500 MG TAB PO SCH (08:52)
[2018-10-05] MEDS: ROPINIROLE HCL 1 MG TABLET PO SCH (08:54)
[2018-10-05] MEDS: METHIMAZOLE 10 MG TAB PO SCH (08:55)
[2018-10-05] MEDS: CARVEDILOL 6.25 MG TABLET PO SCH ×2 (08:55→21:35)
[2018-10-05] MEDS: CALCIUM 600 + VITAMIN D 400 TABLET PO SCH (08:55)
[2018-10-05] MEDS: AMIODARONE HCL 200 MG TABLET PO SCH (08:56)
[2018-10-05] MEDS: ASPIRIN 81MG TAB.CHEW PO SCH (08:56)
[2018-10-05] MEDS: FERROUS SULFATE 300 MG/5 ML LIQ UDCUP PO SCH (08:57)
[2018-10-05] MEDS: ISOSORBIDE MONO 30MG TAB SR PO SCH (08:57)
[2018-10-05] MEDS: FOLIC ACID/VITAMIN B COMP W-C 1 MG CAPSULE PO SCH (08:57)
[2018-10-05] MEDS: ENOXAPARIN SODIUM 30 MG/0.3 ML SQ SCH (08:58)
[2018-10-05] MEDS: THIAMINE HCL 100 MG/ML 2ML VIAL IVP SCH (09:00)
[2018-10-05] MEDS: SODIUM BICARB 8.4% 50ML SYRING 75 MEQ in 1/2 NORMAL SALINE 1,000 ML IV SCH (12:07)
--- NOTE | 2018-10-05 12:57 | NUR ---
DR. HUNT IN ROOM SPEAKING WITH PT. AND PT.'S SPOUSE AT BEDSIDE RE:PLAN OF CARE.
[2018-10-05] MEDS ORDERED: ONDANSETRON HCL MDV 20ML 2 MG/ML VIAL IVP PRN (13:00)
--- NOTE | 2018-10-05 18:45 | NUR ---
AMBULATING IN HALLWAY WITH ASSISTANCE FROM SON. DENIES ANY C/O. CALL LIGHT WITHIN REACH.
[2018-10-06] VITALS (10 sets, daily range): BP systolic 113–185; BP diastolic 56–73
[2018-10-06] MEDS: INSULIN HUMULIN R 100 UNIT/ML 3ML SQ SCH ×3 (06:48→17:37)
[2018-10-06] MEDS: ***HM***Cholecalciferol (Vitamin D3) 1,000 UNIT PO SCH (09:00)
[2018-10-06] MEDS ORDERED: IODIXANOL 320 MG/ML 100 ML VIAL ONE (10:14)
[2018-10-06] MEDS ORDERED: LIDOCAINE HCL 1% MDV 50ML VIAL ONE (10:14)
[2018-10-06] MEDS ORDERED: MIDAZOLAM HCL 1 MG/ML 2ML VIAL ONE (10:44)
[2018-10-06] MEDS ORDERED: FENTANYL CITRATE PF 50 MCG/1 ML 2ML VIAL ONE (10:44)
--- NOTE | 2018-10-06 11:31 | NUR ---
PATIENT HAS RETURNED FROM [facility] WORKER PROCEDURE. PATIENT HAS A CAPPED RIGHT BILIARY CATHETER. FLUSHED CATHETER WITH 10ML OF NS. INSTRUCTED ON HOW TO FLUSH CATHETER AND CLEAN SITE.
[2018-10-06] MEDS: ENOXAPARIN SODIUM 30 MG/0.3 ML SQ SCH (11:44)
[2018-10-06] MEDS: FERROUS SULFATE 300 MG/5 ML LIQ UDCUP PO SCH (11:45)
[2018-10-06] MEDS: METHIMAZOLE 10 MG TAB PO SCH (11:45)
[2018-10-06] MEDS: AMIODARONE HCL 200 MG TABLET PO SCH (11:46)
[2018-10-06] MEDS: POLYETHYLENE GLYCOL 3350 17 GM POWD.PACK PO SCH (11:46)
[2018-10-06] MEDS: ASPIRIN 81MG TAB.CHEW PO SCH (11:46)
[2018-10-06] MEDS: FOLIC ACID/VITAMIN B COMP W-C 1 MG CAPSULE PO SCH (11:46)
[2018-10-06] MEDS: ROPINIROLE HCL 1 MG TABLET PO SCH (11:47)
[2018-10-06] MEDS: CARVEDILOL 6.25 MG TABLET PO SCH (11:47)
[2018-10-06] MEDS: MULTIVITAMIN WITH MINERALS TABLET PO SCH (11:47)
[2018-10-06] MEDS: CALCIUM 600 + VITAMIN D 400 TABLET PO SCH (11:47)
[2018-10-06] MEDS: ISOSORBIDE MONO 30MG TAB SR PO SCH (11:47)
[2018-10-06] MEDS: FAMOTIDINE 20MG TAB 20 MG TAB PO SCH (11:48)
[2018-10-06] MEDS: ASCORBIC ACID 500 MG TAB PO SCH (11:48)
[2018-10-06] MEDS: SODIUM BICARBONATE 650 MG TAB PO SCH (11:48)
[2018-10-06 12:29] LABS: BASOPHILS % (AUTO) 0.9 % (0.0-5.0); EOSINOPHILS % (AUTO) 5.1 % (0.0-8.0); HEMATOCRIT 29.8 % (42-54); LYMPHOCYTES % (AUTO) 11.7 % (21.0-51.0); MEAN CORPUSCULAR HEMOGLOBIN 28.5 pg (27.0-33.0); MEAN CORPUSCULAR HGB CONC 33.4 g/dL (32.0-36.0); MEAN CORPUSCULAR VOLUME 85.2 fL (79-99); MONOCYTES % (AUTO) 7.6 % (3.0-13.0); NEUTROPHILS % (AUTO) 74.7 % (40.0-77.0); PLATELET COUNT (AUTO) 211 K/uL (130-400); RED BLOOD CELL COUNT(AUTO) 3.49 MIL/uL (4.50-6.20); RED CELL DISTRIBUTION WIDTH 14.3 % (11.0-15.5); WHITE BLOOD COUNT (AUTO) 5.9 K/uL (4.8-10.8)
[2018-10-06 12:38] LABS: CREATININE 1.8 mg/dL (0.5-1.5); POTASSIUM 3.5 mmol/L (3.5-5.1)
--- NOTE | 2018-10-06 13:09 | NUR ---
Nutrition f/u: PT with diet advanced to soft 75gm. At time of RD visit pt in procedure, RD spoke to pt's RN who provided nutritional feedback. Pt's nurse with no nutrition concern, reports improved alertness, improved po intake and tolerance. RN encouraged to consult RD as nutrition concerns arise. [facility] 10/05. ALB 2.4. Addendum: 10/06/18 at [address] Amended: Links added.
[2018-10-06] MEDS ORDERED: Isosorbide Mono 30MG Tab Sr PO (14:37)
[2018-10-06] MEDS ORDERED: CARV6.2579 PO (14:37)
[2018-10-06] MEDS ORDERED: SODI650T PO (14:37)
--- NOTE | 2018-10-06 16:24 | NUR ---
DC PLAN VISITED WITH PATIENT. RECOMMENDED HOME HEALTH. [facility]. GAVE INFO TO PATIENT AND FAMILY SAID OKSANCHEZ. JUNI SIGNED. INFO SENT. SPOKE TO CARLIE RECEIVED INFO AND ACCEPTED. PLACED NUMBER TO CALL REPORT ON [facility]. Addendum: 10/06/18 at 1626 by ANTHONY TAYLOR RN CM Amended: Links added.
== END 2018-10-06 18:30 | disposition home health service (06) | DRG 435 ==
LOC: EDH 14:38 → EDHIP 16:00 → 2BH 18:32 → 2AH 10-04 16:45
PROVIDERS: ADMIT Family Medicine; ATTEND Family Medicine
PROC: 30233K1 Transfusion of Nonautologous Frozen Plasma into Peripheral Vein, Percutaneous Approach (ICD-10-PCS; principal; 2018-09-29)
PROC: 0FBG8ZX Excision of Pancreas, Via Natural or Artificial Opening Endoscopic, Diagnostic (ICD-10-PCS; 2018-09-29)
PROC: BF47ZZZ Ultrasonography of Pancreas (ICD-10-PCS; 2018-09-29)
PROC: 0FB23ZX Excision of Left Lobe Liver, Percutaneous Approach, Diagnostic (ICD-10-PCS; 2018-10-02)
PROC: 0F2 Hepatobiliary System and Pancreas, Change (ICD-10-PCS; 2018-10-06)
PROC: BF101ZZ Fluoroscopy of Bile Ducts using Low Osmolar Contrast (ICD-10-PCS; 2018-10-06)
DX: C25.9 Malignant neoplasm of pancreas, unspecified (principal); E43 Unspecified severe protein-calorie malnutrition; I21.3 ST elevation (STEMI) myocardial infarction of unspecified site; I24.9 Acute ischemic heart disease, unspecified; E87.1 Hypo-osmolality and hyponatremia; N17.9 Acute kidney failure, unspecified; C78.7 Secondary malignant neoplasm of liver and intrahepatic bile duct; E87.2 Acidosis; D68.9 Coagulation defect, unspecified; F05 Delirium due to known physiological condition; E78.5 Hyperlipidemia, unspecified; E03.9 Hypothyroidism, unspecified; I25.10 Atherosclerotic heart disease of native coronary artery without angina pectoris; E11.21 Type 2 diabetes mellitus with diabetic nephropathy; E11.51 Type 2 diabetes mellitus with diabetic peripheral angiopathy without gangrene; E87.6 Hypokalemia; R16.0 Hepatomegaly, not elsewhere classified; I35.8 Other nonrheumatic aortic valve disorders; I48.0 Paroxysmal atrial fibrillation; N18.3 Chronic kidney disease, stage 3 (moderate); T45.515A Adverse effect of anticoagulants, initial encounter; Z96.653 Presence of artificial knee joint, bilateral; M19.90 Unspecified osteoarthritis, unspecified site; R97.0 Elevated carcinoembryonic antigen [CEA]; R94.5 Abnormal results of liver function studies; R26.2 Difficulty in walking, not elsewhere classified; D64.9 Anemia, unspecified; E11.65 Type 2 diabetes mellitus with hyperglycemia; I48.91 Unspecified atrial fibrillation; E11.22 Type 2 diabetes mellitus with diabetic chronic kidney disease; I12.9 Hypertensive chronic kidney disease with stage 1 through stage 4 chronic kidney disease, or unspecified chronic kidney disease; I45.10 Unspecified right bundle-branch block; Z68.26 Body mass index [BMI] 26.0-26.9, adult; Z79.84 Long term (current) use of oral hypoglycemic drugs; Z82.5 Family history of asthma and other chronic lower respiratory diseases; Z82.49 Family history of ischemic heart disease and other diseases of the circulatory system; Z82.0 Family history of epilepsy and other diseases of the nervous system; Z83.3 Family history of diabetes mellitus; Z82.3 Family history of stroke; I25.2 Old myocardial infarction; Z79.01 Long term (current) use of anticoagulants; Z86.73 Personal history of transient ischemic attack (TIA), and cerebral infarction without residual deficits; Y92.89 Other specified places as the place of occurrence of the external cause; Z79.899 Other long term (current) drug therapy; Z95.5 Presence of coronary angioplasty implant and graft
CPT/HCPCS: 36415; 43242; 47000; 47535; 70450; 70551; 71045; 74170; 76770; 76942; 80048; 80053; 80076; 81001; 82140; 82550; 82948; 83735; 83874; 83935; 84100; 84300; 84439; 84443; 84484; 85025; 85027; 85610; 85730; 86850; 86900; 86901; 86927; 88104; 88307; 92610; 93005; 93306; 97039; 99152; 99153; 99156; 99157; C1729; C1769; G0378; J0282; J1644; J1650; J1815; J1885; J2060; J2250; J2405; J3010; J3411; J3430; J3490; J7030; J7060; P9017; Q9967